=== PATIENT | male | born 2000 | race Caucasian/White ===

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

== ENCOUNTER 2022-10-22 17:39 | Emergency (ER) | payer OTHER ==
[~2022-10-22] VITALS: Ht 155.7 cm; Wt 55.0 kg
[~2022-10-22 17:39] MED LIST changes: +AMOXICILLIN875 MG PO
[2022-10-22 20:53] LABS: BASO% 0.6 % (0-3); EOS% 2.6 % (0-8); HEMATOCRIT 47.7 % (39.0-50.0); HEMOGLOBIN 15.8 g/dl (14.0-18.0); IMMATURE GRANULOCYTES 0.2 % (0.0-5.0); LYMPH% 19.6 % (15-41); MEAN CORPUSCULAR HGB 29.4 pG CALC (26.0-32.0); MEAN CORPUSCULAR HGB CONC 33.1 g/dL CAL (32.0-36.0); MONO% 10.6 % (2-13); NEUT# 5.47 thou/uL (1.82-7.42); NEUT% 66.4 % (42-76); RED BLOOD COUNT 5.38 mill/uL (4.70-6.10); RED CELL DISTRI WIDTH 13.1 % (11.5-15.5)
[2022-10-22 20:54] LABS: MEAN CELL VOLUME 88.7 fL CALC (80.0-100.0)
[2022-10-22 21:11] LABS: ANION GAP 10 (6-22 (CALC)); BUN 17 mg/dL (9-20); BUN/CREATININE RATIO 21 (12-20 (CALC)); CARBON DIOXIDE 28 mmol/l (22-30); CHLORIDE 106 mmol/l (95-108); CREATININE 0.8 mg/dL (0.7-1.3); GFR FOR AFR.AMER. > 60 ML/MIN (>=60 (CALC)); GFR OTHER RACES > 60 ML/MIN (>=60 (CALC)); POTASSIUM 3.5 mmol/l (3.5-5.1); SGOT/AST 29 u/l (17-59); SODIUM 140 mmol/l (137-146); TOTAL PROTEIN 7.5 g/dL (6.3-8.2)
[2022-10-22 21:22] LABS: ALKALINE PHOSPHATASE 71 u/l (38-126); BILIRUBIN, TOTAL 1.2 mg/dL (0.2-1.3)
[2022-10-22 21:28] VITALS: BP 127/70
[2022-10-22 21:30] VITALS: BP 118/82
[2022-10-22 22:00] VITALS: BP 116/71
[2022-10-22 22:16] VITALS: BP 102/53
[2022-10-22 22:30] VITALS: BP 101/56
== END 2022-10-22 22:41 | disposition home or self-care (01) | DRG 605 ==
LOC: ED 17:39
PROVIDERS: Family Medicine
DX: S20.219A Contusion of unspecified front wall of thorax, initial encounter (principal); V43.52XA Car driver injured in collision with other type car in traffic accident, initial encounter; R00.1 Bradycardia, unspecified